=== PATIENT | female | born 1950 | race Caucasian/White ===

== ENCOUNTER → 2016-09-30 | Outpatient (REF) | payer OTHER ==
[2016-09-30 14:26] LABS: FOLATE 15.8 NG/ML
[2016-09-30 14:30] LABS: TOTAL PROTEIN 7.3 GM/DL (6.4-8.2)
[2016-10-03 00:06] LABS: VITAMIN E LEVEL 11.3 mg/L (6.5-21.5)
== END ==
LOC: M LABNEURO 12:57
PROVIDERS: ATTEND Psychiatry & Neurology Neurology
DX: R20.2 Paresthesia of skin (principal); Z13.1 Encounter for screening for diabetes mellitus